=== PATIENT | male | born 1970 | race Hispanic/Latino ===

== ENCOUNTER 2017-10-10 19:49 | Inpatient (IN) | payer BC ==
[~2017-10-10 19:49] MED LIST: ISOVUE-370 76%-LOCM 1 ML ONE
[2017-10-10 21:17] LABS: Base Excess-Venous 0.8 mmol/L (0 (+/- 2.5)); Bicarbonate (HCO3v) 24.7 mmol/L (1.0-85.0); CO2 Tension (PvCO2) 36.6 mmHg (41.0-51.0); Calcium, Ionized 1.13 mmol/L (1.12-1.32); Hemoglobin - Calc 16.5 g/dL (12.0-18.0); O2 Tension (PvO2) 58.2 mmHg (35.0-45.0); Potassium 3.9 mmol/L (3.4-4.7); T. Carbon Dioxide 25.8 mmol/L (1.0-85.0); pH (Venous) 7.438 (7.35-7.45); vO2 Saturation-calc 90.9 % (94-98)
[2017-10-10 21:28] LABS: #Lymphocytes 1.5 thou/uL (1.20-3.40); #Monocytes 0.8 thou/uL (0.11-0.59); #Neutrophils 6.4 thou/uL (1.40-6.50); %Basophils 0.5 % (0.0-1.0); %Eosinophils 0.2 % (0.0-10.0); %Lymphocytes 17.1 % (21.0-51.0); %Monocytes 9.6 % (0.0-10.0); %Neutrophils 72.6 % (42.0-75.0); Hemoglobin 15.9 g/dL (14.0-18.0); Mean Corpuscular HGB CONC 36.9 g/dL (32.0-36.0); Mean Corpuscular Hemoglobin 34.3 pg (27.0-31.0); Mean Corpuscular Volume 92.9 fL (78.0-98.0); Mean Platelet Volume 6.7 fL (7.4-10.4); Platelet Count 161 thou/uL (130-400); RBC Distribution Width 11.2 % (11.5-14.5); Red Blood Cell (RBC) Count 4.63 mill/uL (4.70-6.10); White Blood Cell (WBC) Count 8.8 thou/uL (4.8-10.8)
[2017-10-10 21:42] LABS: Lactic Acid 1.3 mmol/L (0.5-2.2)
[2017-10-10 21:45] LABS: ALT (SGPT) 35 U/L (8-55); AST (SGOT) 33 U/L (5-34); Albumin 4.3 g/dL (3.5-5.0); Alkaline Phosphatase 185 U/L (40-150); Anion Gap 15 mmol/L (10-20); BUN (Urea Nitrogen) 11 mg/dL (8.9-20.6); Bilirubin, Total 1.1 mg/dL (0.2-1.2); Calc. Creatinine Clearance 0 mL/min (70-130); Calcium 9.4 mg/dL (7.8-10.44); Carbon Dioxide 22 mmol/L (22-29); Chloride 98 mmol/L (98-107); Estimated GFR-MDRD Greater than 90; Globulin 3.5 g/dL (2.4-3.5); Glucose 420 mg/dL (70-105); Lipase 80 U/L (8-78); Protein, Total 7.8 g/dL (6.0-8.3); Sodium 131 mmol/L (136-145)
[2017-10-10 22:10] LABS: Bilirubin Negative (Negative); Blood, Urine Negative (Negative); Clarity CLEAR (Clear); Glucose, Urine (Dipstick) >=1000 mg/dL (Negative); Leukocyte Negative (Negative); Nitrite Negative (Negative); Protein, Urine (Dipstick) Negative (Neg-Trace); Specific Gravity, Urine 1.035 (1.002-1.036); Urobilinogen 0.2 mg/dL (0.2-1.0); pH, Urine 5.5 (5.0-9.0)
--- NOTE | 2017-10-10 22:25 | CT ---
CT PELVIS WITH IV CONTRAST: HISTORY: Testicular pain and swelling. FINDINGS: The urinary bladder is intact. There is a small amount of dystrophic calcification associated with t he prostate gland. There are nonenlarged reactive appearing lymph nodes along each inguinal chain. Soft tissue swelling is apparent. No focal fluid collections. IMPRESSION: Subcutaneous edema about the scrotum without focal fluid collection or other complication. POS: TANISHA
[2017-10-10] MEDS ORDERED: Piperacillin/Tazobactam 4.5 GM VIAL ONE (22:26)
[2017-10-10] MEDS ORDERED: Insulin Regular 300 UNITS/3 ML VIAL ONE (23:13)
[2017-10-11] MEDS ORDERED: Sodium Chloride 0.9% 1,000 ML IV SCH (00:42)
[2017-10-11] MEDS ORDERED: Ondansetron ODT 4 MG TAB SL PRN (00:42)
[2017-10-11] MEDS ORDERED: Acetaminophen 325 MG TAB PO PRN ×2 (00:42→00:58)
[2017-10-11] MEDS ORDERED: Ondansetron HCl/PF 4 MG/2 ML Vial IVP PRN ×2 (00:42→00:58)
[2017-10-11 00:46] VITALS: BMI 27.3
[2017-10-11] MEDS ORDERED: Mag-Al 1200 mg/1200 mg/30 ML UDCUP PO PRN (00:58)
[2017-10-11] MEDS ORDERED: Ondansetron ODT 4 MG TAB PO PRN (00:58)
[2017-10-11] MEDS ORDERED: Dextrose 5% in Water 1,000 ML IV PRN (00:58)
[2017-10-11] MEDS ORDERED: Senokot 8.6 MG TAB PO PRN (00:58)
[2017-10-11] MEDS ORDERED: Loperamide HCl 2 MG CAP PO PRN (00:58)
[2017-10-11] MEDS ORDERED: HYDROcodone/Acetaminophen 10/325 mg Tablet PO PRN (00:58)
[2017-10-11] MEDS ORDERED: Zolpidem Tartrate 5 MG TAB PO PRN (00:58)
[2017-10-11] MEDS ORDERED: Dextrose 50% Abboject 50 ML SYRINGE SLOW IVP PRN (00:58)
[2017-10-11] MEDS ORDERED: Milk Of Magnesia 30 ML UDCUP PO PRN (00:58)
[2017-10-11] MEDS: Sodium Chloride 0.45% 1,000 ML IV SCH ×3 (01:00→20:50)
--- NOTE | 2017-10-11 01:35 | HP ---
DATE OF SERVICE: This patient was seen in the emergency room on 10/10/2017. Order was written late, but patient was seen before midnight. PRIMARY CARE PHYSICIAN: City call admission. REASON FOR ADMISSION: Hyperglycemia with uncontrolled diabetes as well as perineal cellulitis. HISTORY OF PRESENT ILLNESS: A 47-year-old male who has underlying history of diabetes, who presented to the emergency room with a complaint of perineal erythema, tenderness as well as scrotal erythema and tenderness. Patient reports that on Tuesday, he scratched nearby his testicle and since then he was having a lot of pain, tenderness, swelling, which was spreading to his scrotum. He denie s any drainage. His pain is about 8/10 in intensity. He was having subjective fever at home. When he came to emergency room, his temperature was 99. He was tachycardic, hypertensive. He had CT pelv is, which showed subcutaneous edema without any focal fluid collection. The patient was given empiri c antibiotic therapy with vancomycin and Zosyn. Subsequently, we decided to keep this patient in hos pital for perineal cellulitis as well as hyperglycemia. EMERGENCY ROOM COURSE: Patient is given Zosyn 4.5 grams, vancomycin 1 gram, Novolin 6 units and IV f luid 1 liter. REVIEW OF SYSTEMS: The following complete review of systems was negative, unless otherwise mentioned in the HPI or below: Constitutional: Weight loss or gain, ability to conduct usual activities. Sk in: Rash, itching. Eyes: Double vision, pain. ENT/Mouth: Nose bleeding, neck stiffness, pain, te nderness. Cardiovascular: Palpitations, dyspnea on exertion, orthopnea. Respiratory: Shortness of breath, wheezing, cough, hemoptysis, fever or night sweats. Gastrointestinal: Poor appetite, abdom inal pain, heartburn, nausea, vomiting, constipation, or diarrhea. Genitourinary: Urgency, frequenc y, dysuria, nocturia. Musculoskeletal: Pain, swelling. Neurologic/Psychiatric: Anxiety, depressio n. Allergy/Immunologic: Skin rash, bleeding tendency. Please see my HPI for pertinent positive and negative. PAST MEDICAL HISTORY: Diabetes type 2. PAST SURGICAL HISTORY: Reviewed and negative. PAST PSYCHIATRIC HISTORY: Reviewed and negative. SOCIAL HISTORY: Patient drinks everyday alcohol in the form of beer, almost 10 beers everyday basis. He denies any smoking. He is and lives with his . He is working in a [employer]. FAMILY HISTORY: No strong family history of premature coronary artery disease, stroke, or cancer. ALLERGIES: No known drug allergy. CURRENT HOME MEDICATIONS: The patient did not bring his home medication, so unable to verify, at thi s point, patient is not knowing the name of medication. PHYSICAL EXAMINATION: VITAL SIGNS: On arrival, blood pressure 149/95, pulse 111, respiratory rate 18, temperature 99.0, sa turation 96% on room air, weight 90.26 kilograms. GENERAL: Patient is currently alert, awake, in mild distress due to pain. HEAD: Normocephalic, atraumatic. EYES: Pupils are round, reactive to light. Extraocular muscle intact. ENT: Oropharynx within normal limits. Moist mucous membranes. No oral lesion, no pharyngeal erythe ma, no exudate. NECK: Supple. No JVD, no thyromegaly, no carotid bruit, no jugular venous distention. LUNGS: Clear to auscultation without any rhonchi or rales. CARDIAC: S1, S2 regular without any murmur. ABDOMEN: Soft, bowel sounds present, nontender, nondistended. No organomegaly, no mass, no suprapub ic tenderness. GENITOURINARY: Patient does have a left perineal erythema, swelling, tenderness, without any dischar ge. Patient also has mild induration of the left scrotal wall. BACK: Unremarkable. No CVA tenderness. EXTREMITIES: Upper extremity: Passive movement of all joints are normal. Lower extremities: No ed rosa. Good distal pulsation. SKIN: No skin rash. HEMATOLOGICAL: No lymphadenopathy. PSYCHIATRIC: Normal affect. SIGNIFICANT LABORATORY DATA: CT pelvis showed subcutaneous edema without any focal fluid collection. CBC: WBC 8.8, hemoglobin 15.9, platelet 161,000. VBG: PH 7.43, bicarbonate 24.7, CO2 of 36.6, O2 of 58.2. BMP: Sodium 131, potassium 4.0, chloride 98, carbon dioxide 22, anion gap 15, BUN 11, cre atinine 0.86, glucose 420, calcium 9.4. Lactic acid 1.3. LFT: AST 33, ALT 35, alkaline phosphatase is 185, albumin 4.3, lipase 80. Urinalysis: Glucosuria, ketonuria, serum ketones 0.62. ASSESSMENT AND PLAN: 1. Perineal cellulitis. This patient has rapidly worsening erythema, swelling, tenderness in perine al area. He is at risk for deep necrotizing infection, especially because of his uncontrolled diabet es. This patient will require admission. He will be given broad-spectrum antibiotic therapy with va ncomycin and Zosyn. His pain will be controlled with [place] and morphine p.r.n. basis. We will monit or clinical response. At this point, the patient does not have any abscess and does not need any alo gical evaluation. 2. Hyperglycemia associated with diabetes type 2, most likely related with underlying infection and medication noncompliance. At this point, we will continue the Humalog insulin as per aggressive slid ing scale. Diabetic diet will be given. We will check hemoglobin A1c During this admission, we will try to adjust diabetes medication, dietary education given. 3. Alcohol abuse. The patient will be given folic acid, vitamin B12, and thiamine. Counseling give n to avoid alcohol product. We will watch for any withdrawal while in hospital. 4. Pseudohyponatremia. We will continue with IV fluid and will repeat BMP tomorrow. 5. Deep venous thrombosis prophylaxis. Lovenox 40 mg subcu daily. 6. Gastrointestinal prophylaxis. Pepcid 20 mg p.o. b.i.d. Code status: The patient is FULL CODE. The patient's is surrogate decision maker. Disposition plan based on clinical course. We are expecting patient's stay in hospital more than 2 m idnights. Plan of care discussed with the patient in detail.
[2017-10-11] MEDS: Vancomycin HCl 1.25 GM in Sodium Chloride 0.9% 250 ML 250 ML IVPB SCH ×3 (04:17→19:54)
[2017-10-11 04:40] LABS: #Lymphocytes 1.3 thou/uL (1.20-3.40); #Monocytes 0.8 thou/uL (0.11-0.59); #Neutrophils 4.6 thou/uL (1.40-6.50); %Basophils 0.2 % (0.0-1.0); %Eosinophils 0.1 % (0.0-10.0); %Lymphocytes 18.9 % (21.0-51.0); %Monocytes 11.7 % (0.0-10.0); Hemoglobin 14.7 g/dL (14.0-18.0); Mean Corpuscular HGB CONC 36.9 g/dL (32.0-36.0); Mean Corpuscular Hemoglobin 34.5 pg (27.0-31.0); Mean Corpuscular Volume 93.4 fL (78.0-98.0); Mean Platelet Volume 6.8 fL (7.4-10.4); Platelet Count 143 thou/uL (130-400); RBC Distribution Width 11.3 % (11.5-14.5); Red Blood Cell (RBC) Count 4.26 mill/uL (4.70-6.10); White Blood Cell (WBC) Count 6.7 thou/uL (4.8-10.8)
[2017-10-11 04:44] LABS: Hemoglobin A1c 10.3 % (4.0-6.0)
[2017-10-11 04:51] LABS: Anion Gap 14 mmol/L (10-20); BUN (Urea Nitrogen) 9 mg/dL (8.9-20.6); CRP (Inflammatory) 10.89 mg/dL (= or < 0.5); Calc. Creatinine Clearance 148 mL/min (70-130); Calcium 8.7 mg/dL (7.8-10.44); Carbon Dioxide 26 mmol/L (22-29); Chloride 100 mmol/L (98-107); Estimated GFR-MDRD Greater than 90; Glucose 242 mg/dL (70-105); Potassium 3.7 mmol/L (3.5-5.1); Sodium 136 mmol/L (136-145)
[2017-10-11] MEDS: HumaLOG 300 UNITS/3 ML VIAL SC PRN ×2 (05:28→21:10)
[2017-10-11] MEDS: Piperacillin/Tazobactam 4.5 GM in Sodium Chloride 0.9% 100 ML IVPB SCH ×4 (05:28→23:23)
[2017-10-11] MEDS: Famotidine 20 MG TAB PO SCH ×2 (08:41→20:49)
[2017-10-11] MEDS: Enoxaparin Sodium 40 MG/0.4 ML SYRINGE SC SCH (08:41)
[2017-10-11] MEDS: Cyanocobalamin (Vitamin B-12) 1,000 MCG TAB PO SCH (08:41)
[2017-10-11] MEDS: Folic Acid 1 MG TAB PO SCH (08:41)
[2017-10-11 13:07] LABS: HIV (1/2) Antibody/Antigen Non-Reactive (NonReactive); HIV 1/2 INDEX 0.13 S/CO (<1.00)
--- NOTE | 2017-10-11 13:25 | PDOC.PN ---
- Subjective Encounter Start Date: 10/11/17 Encounter Start Time: 13:23 Subjective: c/p painful penile lesion on & off for years. -: not sexually active w for this reason. -: scrotal swelling is getting better - Objective Resuscitation Status: Resuscitation Status FULL:Full Resuscitation MAR Reviewed: Yes Vital Signs & Weight: Vital Signs (12 hours) Temp Pulse Resp BP BP Pulse Ox 10/11/17 08:00 98.2 F 71 16 98 10/11/17 06:52 98.2 F 71 16 122/71 98 10/11/17 04:00 98.1 F 83 20 134/78 98 10/11/17 01:26 98.0 F 89 20 99 Weight Weight 196 lb Result Diagrams: 10/11/17 04:04 10/11/17 04:04 Additional Labs: Accuchecks 10/11/17 10/11/17 10/10/17 11:05 05:23 23:07 POC Glucose 171 H 221 H 321 H 10/10/17 20:20 POC Glucose 425 H Microbiology 10/10/17 21:09 Venous blood - Right Arm Blood Culture - Preliminary Specimen has been received and culture in progress. No Growth to date. 10/10/17 21:09 Venous blood - Left Arm Blood Culture - Preliminary Specimen has been received and culture in progress. No Growth to date. Phys Exam - Physical Examination Constitutional: NAD HEENT: PERRLA, moist MMs, sclera anicteric, oral pharynx no lesions Neck: no nodes, no JVD, supple, full ROM Respiratory: no wheezing, no rales, no rhonchi, clear to auscultation bilateral Cardiovascular: RRR, no significant murmur, no rub Gastrointestinal: soft, non-tender, no distention, positive bowel sounds Musculoskeletal: no edema, pulses present Neurological: non-focal, normal sensation, moves all 4 limbs Psychiatric: normal affect, A&O x 3 Deviation from normal: linear circumferential penile lesion w thick white discharge. -: Mild scrotal swelling and erythema Dx/Plan (1) Cellulitis, scrotum Code(s): N49.2 - INFLAMMATORY DISORDERS OF SCROTUM Status: Acute (2) Penile lesion Code(s): N48.9 - DISORDER OF PENIS, UNSPECIFIED Status: Acute (3) DM2 (diabetes mellitus, type 2) Status: Chronic Qualifiers: Diabetes mellitus thread spooler insulin use: without nursing home use Diabetes mellitus complication status: with hyperglycemia Qualified Code(s): E11.65 - Type 2 diabetes mellitus with hyperglycemia (4) Alcohol abuse Code(s): F10.10 - ALCOHOL ABUSE, UNCOMPLICATED Status: Chronic Comment: cont Thiamine/FA/MV.monitor for Withdrawl - Plan continue antibiotics, out of bed/ambulate, DVT proph w/SCDs cont empiric ABx -: check GC/Chlamydia/HIV/Syphilis . -: consult ID for Abx choice -: ISS w accuchecks. -: hemodynamically stable * . Review of Systems - Review of Systems Constitutional: negative: fever, chills, sweats, weakness, malaise, other Eyes: negative: Pain, Vision Change, Conjunctivae Inflammation, Eyelid Inflammation, Redness, Other ENT: negative: Ear Pain, Ear Discharge, Nose Pain, Nose Discharge, Nose Congestion, Mouth Pain, Mouth Swelling, Throat Pain, Throat Swelling, Other Cardiovascular: negative: chest pain, palpitations, orthopnea, paroxysmal nocturnal dyspnea, edema, light headedness, other Gastrointestinal: negative: Nausea, Vomiting, Abdominal Pain, Diarrhea, Constipation, Melena, Hematochezia, Other Genitourinary: Other. negative: Dysuria, Frequency, Incontinence, Hematuria, Retention Musculoskeletal: negative: Neck Pain, Shoulder Pain, Arm Pain, Back Pain, Hand Pain, Leg Pain, Foot Pain, Other Skin: negative: Rash, Lesions, Rashaad, Bruising, Other Neurological: negative: Weakness, Numbness, Incoordination, Change in Speech, Confusion, Seizures, Other - Medications/Allergies Allergies/Adverse Reactions: Allergies Allergy/AdvReac Type Severity Reaction Status Date / Time No Known Allergies Allergy Unverified 10/11/17 00:41 Medications: Current Medications Acetaminophen (Tylenol) 650 mg PO Q4H PRN PRN Reason: Headache/Fever or Pain Hydrocodone Bitart/Acetaminophen ([place] 10/325) 1 tab PO Q4H PRN PRN Reason: Moderate Pain (4-6) Al Hydroxide/Mg Hydroxide (Maalox) 30 ml PO Q6H PRN PRN Reason: Heartburn or Indigestion Cyanocobalamin (Vitamin B-12) 1,000 mcg PO DAILY [facility] Last Admin: 10/11/17 08:41 Dose: 1,000 mcg Dextrose/Water (Dextrose 50%) 25 gm SLOW IVP PRN PRN PRN Reason: Hypoglycemia Enoxaparin Sodium (Lovenox) 40 mg SC 0900 [facility] Last Admin: 10/11/17 08:41 Dose: 40 mg Famotidine (Pepcid) 20 mg PO BID [facility] Last Admin: 10/11/17 08:41 Dose: 20 mg Folic Acid (Folvite) 1 mg PO DAILY [facility] Last Admin: 10/11/17 08:41 Dose: 1 mg Glucagon (Glucagon) 1 mg IM PRN PRN PRN Reason: Hypoglycemia Piperacillin Sod/Tazobactam (Sod 4.5 gm/ Sodium Chloride) 100 mls @ 200 mls/hr IVPB Q6HR [facility] Last Admin: 10/11/17 12:08 Dose: 100 mls Sodium Chloride (1/2 Normal Saline) 1,000 mls @ 100 mls/hr IV .Q10H [facility] Last Admin: 10/11/17 04:17 Dose: 1,000 mls Dextrose/Water (D5w) 1,000 mls @ 0 mls/hr IV .Q0M PRN PRN Reason: Hypoglycemia Vancomycin HCl 1.25 gm/ Sodium (Chloride) 250 mls @ 166.667 mls/hr IVPB 0400, 1200,2000 [facility] Last Admin: 10/11/17 12:08 Dose: 250 mls Insulin Human Lispro (Humalog) 0 units SC .AGGRESSIVE SLIDING PRN PRN Reason: Aggressive Correctional Scale Insulin Human Lispro (Humalog) 0 units SC .BEDTIME SLIDING SC PRN PRN Reason: Bedtime Correctional Scale Last Admin: 10/11/17 05:28 Dose: 2 unit Loperamide HCl (Imodium) 2 mg PO PRN PRN PRN Reason: Diarrhea/Loose Stools Magnesium Hydroxide (Milk Of Magnesium) 30 ml PO DAILYPRN PRN PRN Reason: Constipation Miscellaneous Medication (Pharmacy To Dose) 0 each IVPB PRN PRN PRN Reason: [facility] Pharmacy to Dose Morphine Sulfate (Morphine) 2 mg SLOW IVP Q4H PRN PRN Reason: Pain Ondansetron HCl (Zofran Odt) 4 mg PO Q6H PRN PRN Reason: Nausea/Vomiting Ondansetron HCl (Zofran) 4 mg IVP Q6H PRN PRN Reason: Nausea/Vomiting Senna (Senokot) 2 tab PO HSPRN PRN PRN Reason: Constipation Sodium Chloride (Flush - Normal Saline) 10 ml IVF Q12HR [facility] Last Admin: 10/11/17 10:21 Dose: Not Given Sodium Chloride (Flush - Normal Saline) 10 ml IVF PRN PRN PRN Reason: Saline Flush Thiamine HCl (Thiamine) 100 mg PO DAILY [facility] Last Admin: 10/11/17 08:41 Dose: 100 mg Zolpidem Tartrate (Ambien) 5 mg PO HSPRN PRN PRN Reason: Insomnia
[2017-10-11 15:01] LABS: Syphilis Antibody Nonreactive (Nonreactive); Syphilis Antibody Index 0.05 S/CO (<1.00 Non-Reactive)
--- NOTE | 2017-10-11 17:42 | CON ---
DATE OF CONSULTATION: 10/11/2017 REASON FOR CONSULTATION: Penile and perianal lesions. HISTORY OF PRESENT ILLNESS: A 47-year-old first admission to [facility] with a history of type 2 diabetes mellitus and chronic recurrent penile lesions which has been treated twice before with resolution, now with recurrence, also has developed area of scrotal inflammatory change with purulent drainage after scratching himself and a smaller knot in the extensor aspect of his right forearm. REVIEW OF SYSTEMS: He denies any headaches, no visual symptoms, sore throat, odynophagia or dysphagia, no cough or sputum production or chest pain, no abdominal pain, no genitourinary symptoms outside the above noted skin lesions. PAST MEDICAL HISTORY: Type 2 diabetes, recurring episodes of phimosis with skin eruption there. PAST SURGICAL HISTORY: Negative. SOCIAL HISTORY: He works in construction, building trailers. He drinks almost 10 beers daily. Never a smoker. FAMILY HISTORY: Noncontributory. ALLERGIES: None. CURRENT MEDICATIONS: Tylenol, [place], Maalox, Lovenox, Pepcid, Folvite, glucagon , insulin, Imodium, Zosyn, and vancomycin. PHYSICAL EXAMINATION: VITAL SIGNS: T-max 98.2, blood pressure 130/70, pulse 83, respirations 20, O2 sat 98%. SKIN: Shows balanoposthitis with some phimosis. In the perineal area, there is what appears to be a small skin abscess with surrounding cellulitis which opened up and drained a purulent exudate, was submitted a sample for culture and the dorsal aspect of the right forearm with a small little pustule. No lymphadenopathy. HEENT: Ocular movements are conjugate. Oral cavity is normal. NECK: Supple, no jugular vein distention. LUNGS: With symmetric clear breath sounds. HEART: S1, S2, regular rate. No S3, S4. ABDOMEN: Soft, not distended or tender. No ascites. No bladder distention. EXTREMITIES: No joint inflammatory activity. NEUROLOGIC: Cognitive function appears to be normal. LABORATORY DATA: White cell count 8.8 and 6.7, hemoglobin 15.9, platelets 161, MCV 92, 72% neutrophils. Sodium 134, creatinine 0.76, glucose 321 and liver profile with alkaline phosphatase 185. Transaminases normal, bilirubin 1.1. Albumin 4.3. Lipase 80. Urinalysis; glycosuria. HIV serology negative. Syphilis negative. Microbiology with pending blood cultures and culture submitted today from the perineal area. ASSESSMENT: 1. Type 2 diabetes. 2. Phimosis with balanopostitis, perineal skin abscess and forearm abscess. 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 STDs have been already looked at. We will submit GC and chlamydia, DNA, PCR, Diflucan plus continue the antimicrobial therapy. Wait for the culture results and transitioned to oral antimicrobials for discharge planning. An alternate diagnosis would be Crohn's disease which can present with perianal perineal fistulous openings, but this appears to be less likely. MTDD
[2017-10-12 03:23] LABS: Vancomycin, Trough 11.6 ug/mL
[2017-10-12] MEDS: Vancomycin HCl 1.25 GM in Sodium Chloride 0.9% 250 ML 250 ML IVPB SCH (04:35)
[2017-10-12] MEDS: Vancomycin HCl 1.5 GM in Sodium Chloride 0.9% 250 ML 300 ML IVPB SCH ×3 (04:44→20:40)
[2017-10-12] MEDS: Piperacillin/Tazobactam 4.5 GM in Sodium Chloride 0.9% 100 ML IVPB SCH ×4 (06:44→22:35)
[2017-10-12] MEDS: Sodium Chloride 0.45% 1,000 ML IV SCH ×2 (08:20→12:42)
[2017-10-12] MEDS: Enoxaparin Sodium 40 MG/0.4 ML SYRINGE SC SCH (08:42)
[2017-10-12] MEDS: Folic Acid 1 MG TAB PO SCH (08:43)
[2017-10-12] MEDS: Famotidine 20 MG TAB PO SCH ×2 (08:43→22:34)
[2017-10-12] MEDS: Cyanocobalamin (Vitamin B-12) 1,000 MCG TAB PO SCH (08:43)
[2017-10-12] MEDS: Fluconazole 100 MG TAB PO SCH (08:43)
[2017-10-12] MEDS: HumaLOG 300 UNITS/3 ML VIAL SC PRN ×2 (11:33→19:08)
--- NOTE | 2017-10-12 13:02 | PRG ---
DATE OF SERVICE: 10/12/2017 SUBJECTIVE: He is feeling better. The area in the perineal region is softer, less painful. He is a ble to sit better than before. He also has noticed improvement in the foreskin with less pain upon r etraction. No headaches, visual symptoms, sore throat, odynophagia, dysphagia. No dyspnea, cough or chest pain, no abdominal pain. OBJECTIVE: VITAL SIGNS: Normal. SKIN: The inspection of the skin shows a more supple nature of the skin in the perineal region aroun d the abscess. The foreskin is less inflamed and retracts better. Balanitis is improving. HEENT: Ocular movements conjugate. Oral cavity normal. NECK: Supple. LUNGS: Symmetric clear breath sounds. HEART: S1, S2, regular rate. ABDOMEN: Soft. LABORATORY DATA: The white cell count is at 6.7, hemoglobin 14.7, platelets 143. Sodium 136, creati nine 0.76. Liver profile with alkaline phosphatase 185, albumin 4.3 and HIV and syphilis serology ne gative. Microbiology with bacterial cultures from the perineal swab with a few gram positive cocci i n clusters. It could potentially be a mixed culture, but final results are pending. Two sets of blo od culture thus far are negative. ASSESSMENT AND DISCUSSION: Type 2 diabetes with phimosis with balanoposthitis and perineal skin absc ess and foreskin abscess. DISCUSSION: The patient's cultures are still pending. It could be a polymicrobial or just a purely Staphylococcus aureus process in the perineal region. The foreskin region is most likely a combinati on of debris plus Alanis infection and it seems to be improving as well. Waiting on the final cultu re results from the perineal area to narrow down the spectrum of coverage and then plan discharge dis position on oral antimicrobial therapy. I do not believe the patient is going to need removal of the foreskin.
[2017-10-12] MEDS ORDERED: Lidocaine 4% Topical Sol 50 ML BOT TOP PRN (14:14)
--- NOTE | 2017-10-12 14:17 | PDOC.PN ---
- Subjective Encounter Start Date: 10/12/17 Encounter Start Time: 14:15 Subjective: reports improvement in penile pain and scrotal sweling - Objective Resuscitation Status: Resuscitation Status FULL:Full Resuscitation MAR Reviewed: Yes Vital Signs & Weight: Vital Signs (12 hours) Temp Pulse Resp BP Pulse Ox 10/12/17 07:07 98.6 F 65 16 134/79 97 10/12/17 04:00 98.7 F 70 20 125/70 97 Weight Admit Weight 196 lb Weight 196 lb I&O: 10/11/17 10/12/17 10/13/17 06:59 06:59 06:59 Intake Total 4660 Balance 4660 Result Diagrams: 10/11/17 04:04 10/11/17 04:04 Additional Labs: Accuchecks 10/12/17 10/12/17 10/11/17 11:28 05:29 19:46 POC Glucose 276 H 205 H 281 H 10/11/17 16:24 POC Glucose 206 H Microbiology 10/11/17 13:34 Perineal Bacterial Culture - Preliminary 10/11/17 13:34 Perineal Bacterial Culture - Preliminary 10/10/17 21:54 Urine voided Urine Culture - Preliminary NO GROWTH AT 12 HOURS 10/10/17 21:09 Venous blood - Right Arm Blood Culture - Preliminary Specimen has been received and culture in progress. No Growth to date. 10/10/17 21:09 Venous blood - Right Arm Blood Culture - Preliminary NO GROWTH AT 48 HOURS 10/10/17 21:09 Venous blood - Left Arm Blood Culture - Preliminary Specimen has been received and culture in progress. No Growth to date. 10/10/17 21:09 Venous blood - Left Arm Blood Culture - Preliminary NO GROWTH AT 48 HOURS Laboratory Tests 10/10/17 10/10/17 21:02 21:02 Syphilis IgG/IgM Ab Nonreactive HIV 1&2 Antigen & Ab Non-Reactive Phys Exam - Physical Examination Constitutional: NAD HEENT: PERRLA, moist MMs, sclera anicteric, oral pharynx no lesions Neck: no nodes, no JVD, supple, full ROM Respiratory: no wheezing, no rales, no rhonchi, clear to auscultation bilateral Cardiovascular: RRR, no significant murmur, no rub, gallop Gastrointestinal: soft, non-tender, no distention, positive bowel sounds Musculoskeletal: no edema, pulses present Neurological: non-focal, normal sensation, moves all 4 limbs Psychiatric: normal affect, A&O x 3 Skin: no rash Dx/Plan (1) Cellulitis, scrotum Code(s): N49.2 - INFLAMMATORY DISORDERS OF SCROTUM Status: Acute (2) Penile lesion Code(s): N48.9 - DISORDER OF PENIS, UNSPECIFIED Status: Acute (3) DM2 (diabetes mellitus, type 2) Status: Chronic Qualifiers: Diabetes mellitus long term care pharmacist insulin use: without residential use Diabetes mellitus complication status: with hyperglycemia Qualified Code(s): E11.65 - Type 2 diabetes mellitus with hyperglycemia (4) Alcohol abuse Code(s): F10.10 - ALCOHOL ABUSE, UNCOMPLICATED Status: Chronic Comment: cont Thiamine/FA/MV.monitor for Withdrawl - Plan continue antibiotics, PT/OT, out of bed/ambulate, DVT proph w/SCDs clinically better. HIV & syphiliis negative -: GC/Chlamydia pending -: cont ABx for perineal inflammation.follow Cx -: cont diflucan for balanitis.add top prn lidocaine -: appreciate ID input * . Review of Systems - Review of Systems Constitutional: negative: fever, chills, sweats, weakness, malaise, other ENT: negative: Ear Pain, Ear Discharge, Nose Pain, Nose Discharge, Nose Congestion, Mouth Pain, Mouth Swelling, Throat Pain, Throat Swelling, Other Respiratory: negative: Cough, Dry, Shortness of Breath, Hemoptysis, SOB with Excertion, Pleuritic Pain, Sputum, Wheezing Cardiovascular: negative: chest pain, palpitations, orthopnea, paroxysmal nocturnal dyspnea, edema, light headedness, other Gastrointestinal: negative: Nausea, Vomiting, Abdominal Pain, Diarrhea, Constipation, Melena, Hematochezia, Other Genitourinary: Other Musculoskeletal: negative: Neck Pain, Shoulder Pain, Arm Pain, Back Pain, Hand Pain, Leg Pain, Foot Pain, Other Skin: negative: Rash, Lesions, Rashaad, Bruising, Other Neurological: negative: Weakness, Numbness, Incoordination, Change in Speech, Confusion, Seizures, Other - Medications/Allergies Allergies/Adverse Reactions: Allergies Allergy/AdvReac Type Severity Reaction Status Date / Time No Known Allergies Allergy Unverified 10/11/17 00:41 Medications: Current Medications Acetaminophen (Tylenol) 650 mg PO Q4H PRN PRN Reason: Headache/Fever or Pain Hydrocodone Bitart/Acetaminophen ([place] 10/325) 1 tab PO Q4H PRN PRN Reason: Moderate Pain (4-6) Al Hydroxide/Mg Hydroxide (Maalox) 30 ml PO Q6H PRN PRN Reason: Heartburn or Indigestion Cyanocobalamin (Vitamin B-12) 1,000 mcg PO DAILY [facility] Last Admin: 10/12/17 08:43 Dose: 1,000 mcg Dextrose/Water (Dextrose 50%) 25 gm SLOW IVP PRN PRN PRN Reason: Hypoglycemia Enoxaparin Sodium (Lovenox) 40 mg SC 0900 [facility] Last Admin: 10/12/17 08:42 Dose: 40 mg Famotidine (Pepcid) 20 mg PO BID [facility] Last Admin: 10/12/17 08:43 Dose: 20 mg Fluconazole (Diflucan) 100 mg PO DAILY [facility] Last Admin: 10/12/17 08:43 Dose: 100 mg Folic Acid (Folvite) 1 mg PO DAILY [facility] Last Admin: 10/12/17 08:43 Dose: 1 mg Glucagon (Glucagon) 1 mg IM PRN PRN PRN Reason: Hypoglycemia Piperacillin Sod/Tazobactam (Sod 4.5 gm/ Sodium Chloride) 100 mls @ 200 mls/hr IVPB Q6HR [facility] Last Admin: 10/12/17 11:23 Dose: 100 mls Dextrose/Water (D5w) 1,000 mls @ 0 mls/hr IV .Q0M PRN PRN Reason: Hypoglycemia Vancomycin HCl 1.5 gm/ Sodium (Chloride) 300 mls @ 200 mls/hr IVPB 0400,1200, 2000 [facility] Last Admin: 10/12/17 12:43 Dose: 300 mls Insulin Human Lispro (Humalog) 0 units SC .AGGRESSIVE SLIDING PRN PRN Reason: Aggressive Correctional Scale Last Admin: 10/12/17 11:33 Dose: 9 unit Insulin Human Lispro (Humalog) 0 units SC .BEDTIME SLIDING SC PRN PRN Reason: Bedtime Correctional Scale Last Admin: 10/11/17 21:10 Dose: 3 unit Lidocaine HCl (Xylocaine 4% Topical [place]) 1 ml TOP QID PRN PRN Reason: Anal/Rectal Irritations Loperamide HCl (Imodium) 2 mg PO PRN PRN PRN Reason: Diarrhea/Loose Stools Magnesium Hydroxide (Milk Of Magnesium) 30 ml PO DAILYPRN PRN PRN Reason: Constipation Miscellaneous Medication (Pharmacy To Dose) 0 each IVPB PRN PRN PRN Reason: [facility] Pharmacy to Dose Morphine Sulfate (Morphine) 2 mg SLOW IVP Q4H PRN PRN Reason: Pain Ondansetron HCl (Zofran Odt) 4 mg PO Q6H PRN PRN Reason: Nausea/Vomiting Ondansetron HCl (Zofran) 4 mg IVP Q6H PRN PRN Reason: Nausea/Vomiting Senna (Senokot) 2 tab PO HSPRN PRN PRN Reason: Constipation Sodium Chloride (Flush - Normal Saline) 10 ml IVF Q12HR [facility] Last Admin: 10/12/17 08:45 Dose: Not Given Sodium Chloride (Flush - Normal Saline) 10 ml IVF PRN PRN PRN Reason: Saline Flush Thiamine HCl (Thiamine) 100 mg PO DAILY [facility] Last Admin: 10/12/17 08:43 Dose: 100 mg Zolpidem Tartrate (Ambien) 5 mg PO HSPRN PRN PRN Reason: Insomnia
[2017-10-13] MEDS: Vancomycin HCl 1.5 GM in Sodium Chloride 0.9% 250 ML 300 ML IVPB SCH ×2 (04:24→14:32)
[2017-10-13] MEDS: Piperacillin/Tazobactam 4.5 GM in Sodium Chloride 0.9% 100 ML IVPB SCH ×2 (06:10→11:56)
[2017-10-13] MEDS: HumaLOG 300 UNITS/3 ML VIAL SC PRN ×3 (06:21→18:15)
[2017-10-13] MEDS: Enoxaparin Sodium 40 MG/0.4 ML SYRINGE SC SCH (10:08)
[2017-10-13] MEDS: Folic Acid 1 MG TAB PO SCH (10:09)
[2017-10-13] MEDS: Fluconazole 100 MG TAB PO SCH (10:09)
[2017-10-13] MEDS: Famotidine 20 MG TAB PO SCH ×2 (10:09→22:00)
[2017-10-13] MEDS: Cyanocobalamin (Vitamin B-12) 1,000 MCG TAB PO SCH (10:10)
[2017-10-13 12:29] LABS: Vancomycin, Trough 13.6 ug/mL
[2017-10-13] MEDS ORDERED: Vancomycin HCl 1.75 GM in Sodium Chloride 0.9% 500 ML IVPB SCH (13:00)
--- NOTE | 2017-10-13 13:54 | PDOC.PN ---
- Subjective Encounter Start Date: 10/13/17 Encounter Start Time: 13:52 Subjective: reposrt ssome blood on wiping on toliet paper -: scrotal pain and penile pain is better - Objective Resuscitation Status: Resuscitation Status FULL:Full Resuscitation MAR Reviewed: Yes Vital Signs & Weight: Vital Signs (12 hours) Temp Pulse Resp BP Pulse Ox 10/13/17 08:00 98.6 F 66 20 128/82 98 Weight Admit Weight 196 lb Weight 196 lb I&O: 10/12/17 10/13/17 10/14/17 06:59 06:59 06:59 Intake Total 4659 2039 Balance 4659 2039 Result Diagrams: 10/11/17 04:04 10/11/17 04:04 Additional Labs: Accuchecks 10/13/17 10/13/17 10/12/17 11:18 05:27 19:36 POC Glucose 312 H 221 H 247 H 10/12/17 16:53 POC Glucose 200 H Microbiology 10/10/17 21:54 Urine voided Urine Culture - Final Beta-hemolytic Streptococcus 10/11/17 13:34 Perineal Bacterial Culture - Preliminary Staphylococcus aureus 10/10/17 21:09 Venous blood - Right Arm Blood Culture - Preliminary NO GROWTH AT 48 HOURS 10/10/17 21:09 Venous blood - Left Arm Blood Culture - Preliminary NO GROWTH AT 48 HOURS Phys Exam - Physical Examination Constitutional: NAD HEENT: PERRLA, moist MMs, sclera anicteric, oral pharynx no lesions Neck: no nodes, no JVD, supple, full ROM Respiratory: no wheezing, no rales, no rhonchi, clear to auscultation bilateral Cardiovascular: RRR, no significant murmur, no rub Gastrointestinal: soft, non-tender, no distention, positive bowel sounds Musculoskeletal: no edema, pulses present Neurological: non-focal, normal sensation, moves all 4 limbs Psychiatric: normal affect, A&O x 3 Skin: no rash Deviation from normal: perineal fistula w surrounding macerated skin Dx/Plan (1) 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 Status: Acute (2) Cellulitis, scrotum Code(s): N49.2 - INFLAMMATORY DISORDERS OF SCROTUM Status: Acute (3) Penile lesion Code(s): N48.9 - DISORDER OF PENIS, UNSPECIFIED Status: Acute (4) DM2 (diabetes mellitus, type 2) Status: Chronic Qualifiers: Diabetes mellitus manager intermediate insulin use: without manager intermediate use Diabetes mellitus complication status: with hyperglycemia Qualified Code(s): E11.65 - Type 2 diabetes mellitus with hyperglycemia (5) Alcohol abuse Code(s): F10.10 - ALCOHOL ABUSE, UNCOMPLICATED Status: Chronic Comment: cont Thiamine/FA/MV.monitor for Withdrawl - Plan continue antibiotics, out of bed/ambulate, DVT proph w/SCDs Fistula concerning for IBD Vs just infection post abscess.cont ABx -: will consult GS. -: Cont Diflucan for possible Penile lionel -: Flagyl added w Rocephin for scrotal cellulitis. -: HD stable * . Review of Systems - Review of Systems Constitutional: negative: fever, chills, sweats, weakness, malaise, other ENT: negative: Ear Pain, Ear Discharge, Nose Pain, Nose Discharge, Nose Congestion, Mouth Pain, Mouth Swelling, Throat Pain, Throat Swelling, Other Respiratory: negative: Cough, Dry, Shortness of Breath, Hemoptysis, SOB with Excertion, Pleuritic Pain, Sputum, Wheezing Cardiovascular: negative: chest pain, palpitations, orthopnea, paroxysmal nocturnal dyspnea, edema, light headedness, other Gastrointestinal: negative: Nausea, Vomiting, Abdominal Pain, Diarrhea, Constipation, Melena, Hematochezia, Other Genitourinary: Other. negative: Dysuria, Frequency, Incontinence, Hematuria, Retention Musculoskeletal: negative: Neck Pain, Shoulder Pain, Arm Pain, Back Pain, Hand Pain, Leg Pain, Foot Pain, Other Skin: negative: Rash, Lesions, Rashaad, Bruising, Other Neurological: negative: Weakness, Numbness, Incoordination, Change in Speech, Confusion, Seizures, Other - Medications/Allergies Allergies/Adverse Reactions: Allergies Allergy/AdvReac Type Severity Reaction Status Date / Time No Known Allergies Allergy Unverified 10/11/17 00:41 Medications: Current Medications Acetaminophen (Tylenol) 650 mg PO Q4H PRN PRN Reason: Headache/Fever or Pain Hydrocodone Bitart/Acetaminophen (Osgood 10/325) 1 tab PO Q4H PRN PRN Reason: Moderate Pain (4-6) Al Hydroxide/Mg Hydroxide (Maalox) 30 ml PO Q6H PRN PRN Reason: Heartburn or Indigestion Cyanocobalamin (Vitamin B-12) 1,000 mcg PO DAILY [facility] Last Admin: 10/13/17 10:10 Dose: 1,000 mcg Dextrose/Water (Dextrose 50%) 25 gm SLOW IVP PRN PRN PRN Reason: Hypoglycemia Enoxaparin Sodium (Lovenox) 40 mg SC 0900 [facility] Last Admin: 10/13/17 10:08 Dose: 40 mg Famotidine (Pepcid) 20 mg PO BID [facility] Last Admin: 10/13/17 10:09 Dose: 20 mg Fluconazole (Diflucan) 100 mg PO DAILY [facility] Last Admin: 10/13/17 10:09 Dose: 100 mg Folic Acid (Folvite) 1 mg PO DAILY [facility] Last Admin: 10/13/17 10:09 Dose: 1 mg Glucagon (Glucagon) 1 mg IM PRN PRN PRN Reason: Hypoglycemia Dextrose/Water (D5w) 1,000 mls @ 0 mls/hr IV .Q0M PRN PRN Reason: Hypoglycemia Ceftriaxone Sodium 1 gm/ (Sodium Chloride) 100 mls @ 200 mls/hr IVPB Q24HR [facility] Insulin Human Lispro (Humalog) 0 units SC .AGGRESSIVE SLIDING PRN PRN Reason: Aggressive Correctional Scale Last Admin: 10/13/17 11:55 Dose: 11 unit Insulin Human Lispro (Humalog) 0 units SC .BEDTIME SLIDING SC PRN PRN Reason: Bedtime Correctional Scale Last Admin: 10/11/17 21:10 Dose: 3 unit Lidocaine HCl (Xylocaine 4% Topical Diana) 1 ml TOP QIDPRN PRN PRN Reason: Anal/Rectal Irritations Loperamide HCl (Imodium) 2 mg PO PRN PRN PRN Reason: Diarrhea/Loose Stools Magnesium Hydroxide (Milk Of Magnesium) 30 ml PO DAILYPRN PRN PRN Reason: Constipation Metronidazole (Flagyl) 500 mg PO TID [facility] Miscellaneous Medication (Pharmacy To Dose) 0 each IVPB PRN PRN PRN Reason: [facility] Pharmacy to Dose Morphine Sulfate (Morphine) 2 mg SLOW IVP Q4H PRN PRN Reason: Pain Ondansetron HCl (Zofran Odt) 4 mg PO Q6H PRN PRN Reason: Nausea/Vomiting Ondansetron HCl (Zofran) 4 mg IVP Q6H PRN PRN Reason: Nausea/Vomiting Senna (Senokot) 2 tab PO HSPRN PRN PRN Reason: Constipation Sodium Chloride (Flush - Normal Saline) 10 ml IVF Q12HR [facility] Last Admin: 10/13/17 10:09 Dose: 10 ml Sodium Chloride (Flush - Normal Saline) 10 ml IVF PRN PRN PRN Reason: Saline Flush Thiamine HCl (Thiamine) 100 mg PO DAILY [facility] Last Admin: 10/13/17 10:09 Dose: 100 mg Zolpidem Tartrate (Ambien) 5 mg PO HSPRN PRN PRN Reason: Insomnia
[2017-10-13] MEDS ORDERED: cefTRIAXone\\ROCEPHIN 1 GM in Sodium Chloride 0.9% 100 ML IVPB SCH (14:00)
[2017-10-13] MEDS: metroNIDAZOLE 500 MG TAB PO SCH ×2 (15:21→22:00)
[2017-10-14 04:06] LABS: Chlamydia by PCR Not Detected (NotDetected); GC by PCR Not Detected (NotDetected)
[2017-10-14] MEDS ORDERED: Lidocaine/Transparent Dressing 1 EACH KIT TP PRN (06:07)
[2017-10-14] MEDS: HumaLOG 300 UNITS/3 ML VIAL SC PRN ×2 (06:22→11:22)
[2017-10-14 07:43] VITALS: BP 123/84; TEMP 98.1
[2017-10-14] MEDS: Fluconazole 100 MG TAB PO SCH (08:54)
[2017-10-14] MEDS: Folic Acid 1 MG TAB PO SCH (08:55)
[2017-10-14] MEDS: Famotidine 20 MG TAB PO SCH (08:55)
[2017-10-14] MEDS: metroNIDAZOLE 500 MG TAB PO SCH (08:55)
[2017-10-14] MEDS: Cyanocobalamin (Vitamin B-12) 1,000 MCG TAB PO SCH (08:55)
[2017-10-14] MEDS: Enoxaparin Sodium 40 MG/0.4 ML SYRINGE SC SCH (08:56)
--- NOTE | 2017-10-14 10:34 | CON ---
DATE OF CONSULTATION: 10/14/2017 HISTORY OF PRESENT ILLNESS: Mr. Burch is a 47-year-old obese man with history of type 2 diabetes mellitus. The patient states that several days ago he scratched himself in the perineum and developed some pain ful raised area. Two days later he had a little drainage from the site. He was admitted 4 days ago with uncontrolled diabetes mellitus as well as a perineal cellulitis. Antibiotics were initiated. I was asked to eval uate the patient to exclude perineal enterocutaneous fistula suspicious for Crohn's disease. At the time of my evaluation, the patient denies any fevers or chills. The pain is resolving and he has no significant active drainage from the site. Cultures from the perineal drainage 3 days ago was consis tent with Staphylococcus aureus as well as Streptococcus agalactiae. The patient denies any change in his bowel habits, weight loss or abdominal pain. He denies any marcin tochezia or melena. PAST MEDICAL HISTORY: Pertinent for type 2 diabetes mellitus. PAST SURGICAL HISTORY: The patient denies any previous surgeries. SOCIAL HISTORY: He is and lives at home with his . He admits to occasional intake of et hanol which consist of about 10 beers a day. He denies any cigarette smoking or illicit drug abuse. FAMILY HISTORY: He denies any family history of essential hypertension, coronary artery disease, can cer or any gastrointestinal disorders including inflammatory bowel disease. PREHOSPITALIZATION MEDICATION: Includes Glucophage 500 mg p.o. b.i.d. ALLERGIES: Patient denies any known drug allergies. REVIEW OF SYSTEMS: Ten point review of systems essentially unremarkable except for as stated in past medical history and chief complaint. PHYSICAL EXAMINATION: GENERAL: This reveals a 47-year-old normally developed man who is otherwise coherent and interactive and appears stated age. The patient is alert and oriented x3. He appears to be in no acute distres s at the time of my evaluation. VITAL SIGNS: Today includes blood pressure 123/84, pulse 69, respiratory rate 16, temperature 98.1 d egrees Fahrenheit, oxygen saturation 97% on room air. HEENT: Reveals normocephalic and atraumatic. Pupils equal, round, reactive to light and accommodati on. HEART: Reveals regular rate and rhythm, no murmurs or gallops auscultated. LUNGS: Clear to auscultation bilaterally. Breathing regular and unlabored. ABDOMEN: Soft, nontender, nondistended. Liver and spleen nonpalpable below costal margin. GENITOURINARY: Examination reveals an uncircumcised male genitalia with bilateral descended testicle s. RECTAL: He has 1.5 x 0.5 x 0.3 cm wound in the perineum at 6 o'clock of the anus. The base of the w ound is readily visible with 100% granulation, no purulence. The wound does not tunnel. There was n o induration surrounding the wound itself. At the time of my evaluation. There is minimum tendernes s during my examination. I did not perform any rectal exam at this time. EXTREMITIES: There are 2+ radial and pedal pulses bilaterally. No ankle edema present. NEUROLOGIC: Reveals no focal deficits present. PERTINENT LABORATORY FINDINGS: Today includes a CBC which was obtained 3 days ago with 6700 white bl ood cells, hemoglobin and hematocrit 14.7 and 39.8 respectively. Platelet count 143,000. Metabolic profile same date with sodium 136, potassium 3.7, chloride 100, bicarbonate 26, BUN 9, creatinine 0.7 6, glucose 242, which was improved from admission of 420. Hemoglobin A1c on that date was elevated at 10.3. C-reactive protein was also elevated at 10.89. I personally reviewed the CT scan of the pelvis which was obtained on admission 10/10/2017. This rev ealed subcutaneous edema about the scrotum without any fluid collection. IMPRESSION: 1. A 1.5 x 0.5 x 3 cm perineal abscess status post spontaneous drainage. 2. Type 2 diabetes mellitus. There is no evidence of enterocutaneous fistula, therefore Crohn's disease is quite unlikely. RECOMMENDATIONS: 1. Continue antibiotic therapy, may be transitioned to oral agent. 2. Sitz baths 3 times daily and after each bowel movement. 3. There is no acute surgical indication for this patient at this time. 4. The patient is advised to follow up with me in the Surgery Clinic in 1 week following discharge. The above findings and recommendation were discussed with the patient who indicates understanding of the information given. Thank you again Dr. Johnson for allowing me the opportunity to participate in the care of this patien t.
--- NOTE | 2017-10-14 21:04 | DIS ---
DATE OF ADMISSION: 10/11/2017 DATE OF DISCHARGE: 10/14/2017 PRIMARY CARE PHYSICIAN: Lorne at [facility]. The patient cannot recall the name. DISCHARGE MEDICATIONS: As follows, Keflex 500 mg p.o. t.i.d. for 3 weeks, Diflucan 100 mg daily for 3 weeks. Lidocaine cream as needed and resume Glucophage-XR 500 mg p.o. b.i.d. PROCEDURES DONE IN THE HOSPITAL: CT scan of the pelvis which is negative for any abscess. Show subc utaneous edema. INHOUSE CONSULTATIONS: 1. Infectious Disease, Dr. Lara. 2. General Surgery, Dr. Patiño. DISCHARGE DIAGNOSES: 1. 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 3. Scrotal cellulitis due to perineal abscess. 4. Diabetes mellitus type 2, uncontrolled. HISTORY OF PRESENTING ILLNESS: Mr. Burch is a pleasant 47-year-old male with history of diabetes mellitus who presented to the hospital for complaints of perineal cellulitis in the form of erythema and tenderness as well as scrotal erythema and tenderness. He was having subjective fevers at home. Upon presentation, he was tachycardic and hypertensive. CT of the pelvis was done which showed subc utaneous edema without any focal fluid collection. He was given empiric antibiotics and was admitted for scrotal cellulitis. Please see admission history and physical for further details. HOSPITAL COURSE: The patient was found to have significant shallow ulceration in the penis as well a s scrotal cellulitis as well as a fistula in the perineal region under the scrotum. This was culture d and Infectious Disease was called. The culture of the area grew Staph aureus, which was methicilli n sensitive as well as Streptococcus. Blood cultures were negative. Because of the presence of the fistula, General Surgery was consulted and both Dr. Lara and Dr. Patiño saw the patient and their rec ommendation was that this most likely is a sequelae of the abscess. The fistula was found to show he aling by granulation tissue from inside out. The antibiotics were changed according to the cultures. The patient underwent testing for HIV, GC chlamydia as well as syphilis and all of the serology was negative. 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 He was treated with Dif lucan and topical lidocaine with significant improvement. On the day of discharge, his symptoms are minimal and he is cleared by discharge by Dr. Lara with ou tpatient followup. Prescriptions were provided. He was also given prescription for glucometer test strips and lancets. He is instructed to follow up with primary care physician in 7-[address] Geovanna anderson in 2-3 weeks. PHYSICAL EXAMINATION: He was seen and examined prior to discharge with physical exam this morning, VITAL SIGNS: Temperature 98.1, pulse of 69, respirations 16, saturating 97% on room air, blood press ure 123/84. GENERAL: No acute distress, awake, alert, and oriented x3. CHEST: Clear to auscultation without any wheezing, rales or rhonchi. HEART: Rate and rhythm is regular. GENITOURINARY: Showed some resolution of the scrotal cellulitis. His perineal fistula has lessened in size without any purulent discharge. LABORATORY EXAMINATION: Hemoglobin A1c was found to be more than 10. The patient is instructed and was provided information about dietary compliance with diabetic diet and he verbalized understanding. TIME SPENT: 32 minutes.
== END 2017-10-14 13:44 | disposition home or self-care (01) | DRG 728 ==
LOC: ERS 19:49 → ONC 10-11 00:14
PROVIDERS: ADMIT Internal Medicine; ATTEND Internal Medicine
DX: N49.2 Inflammatory disorders of scrotum (principal); N47.6 Balanoposthitis; E11.628 Type 2 diabetes mellitus with other skin complications; N50.89 Other specified disorders of the male genital organs; E11.65 Type 2 diabetes mellitus with hyperglycemia; F10.20 Alcohol dependence, uncomplicated; B95.61 Methicillin susceptible Staphylococcus aureus infection as the cause of diseases classified elsewhere; N48.9 Disorder of penis, unspecified; Z79.84 Long term (current) use of oral hypoglycemic drugs
CPT/HCPCS: 36415; 36416; 72193; 80048; 80053; 80202; 81003; 82010; 82330; 82803; 83036; 83605; 83690; 85025; 86140; 86780; 87040; 87070; 87077; 87086; 87186; 87205; 87389; 87491; 87591; 96365; 96366; 96375; A4216; J0696; J1650; J1815; J2001; J2543; J3370; J7050